=== PATIENT | male | born 1980 | race African-American/Black ===

== ENCOUNTER 2022-04-25 21:04 | Emergency (ER) | payer OTHER ==
[2022-04-25 21:13] VITALS: BP 156/92; PULSE 65; RESP 20; TEMP 98.4; BMI 36.6
== END 2022-04-25 22:08 | disposition home or self-care (01) ==
LOC: JERFT 21:04
DX: Z11.52 Encounter for screening for COVID-19 (principal)
CPT/HCPCS: 99283-25; C9803-CS; U0003; U0005